=== PATIENT | male | born 1960 | race African-American/Black ===

== ENCOUNTER 2016-02-27 09:55 | Emergency (ER) ==
[2016-02-27 10:32] LABS: MANUAL DIFF NEEDED? NO
[2016-02-27 10:33] LABS: BASO% 0.6 % (0.0-0.8); EOS# 0.08 X1000 (0.0-0.7); EOS% 2.2 % (0.0-10.0); HEMATOCRIT 47.1 % (42.0-52.0); HEMOGLOBIN 16.2 g/dL (14.0-18.0); LYMPH# 1.04 X1000 (1.2-3.4); LYMPH% 28.8 % (20.5-51.1); MCH 29.4 PG (27-31); MCHC 34.4 g/dL (33-37); MCV 85.5 FL (81-99); MONO# 0.48 X1000 (0.11-0.59); MONO% 13.3 % (1.7-9.3); MPV 9.3 FL (7.4-10.4); NEUT% 55.1 % (42.2-75.2); PLT 407 X1000 (130-400); RBC 5.51 XMIL (4.7-6.1)
--- NOTE | 2016-02-27 10:47 | PROVIDER DOCUMENTATION ---
HPI-General Adult - General Chief Complaint: Return/Recheck Stated Complaint: B/P PROBLEMS Time Seen by Provider: 02/27/16 10:47 Source: patient, family Allergies/Adverse Reactions: Patient Allergies Allergy/AdvReac Type Severity Reaction Status Date / Time Sulfa (Sulfonamide Allergy RASH Verified 07/31/15 23:30 Antibiotics) - History of Present Illness -Gen Adult Nature of Presenting Problems: Reports Hypertension 195/114 this morning. Reports started yesterday took BP medications as instructed but started feeling bad today. Symptoms blurry vision, left temporal radiating right temporal headache and faster respirations. Also reports right leg sharp pain radiating intermittently Denies any injuries. Reports took BP while standing up. Severity: reports: moderate Onset/Duration: reports: 2 days ago Timing: reports: still present Context/Activities at Onset: reports: none Similar Symptoms Previously?: Yes Recently seen or treated by another doctor?: Yes Review of Systems - Adult - REVIEW OF SYSTEMS - ADULT Constitutional: denies: chills, fever, fatique Eyes: reports: blurred vision Ears, Nose, Mouth & Throat: denies: ear pain, sinus problem, throat pain Cardiovascular: reports: no symptoms reported Respiratory: denies: cough, shortness of breath, wheezing Gastrointestinal: reports: no symptoms reported Genitourinary: reports: no symptoms reported Musculoskeletal: reports: see HPI. denies: bone pain, back pain, joint pain, joint swelling Integumentary: reports: no symptoms reported Neurological: reports: headache/migraines. denies: dizziness/vertigo, loss of balance, numbness, paresthesia, syncope, tremors Psychiatric: reports: no symptoms reported Endocrine: reports: no symptoms reported Hematologic/Lymphatic: reports: no symptoms reported Allergic/Immunologic: reports: no symptoms reported All Other Systems: Reviewed and Negative Past History - Adult - PAST MEDICAL HISTORY-ADULT Review of Records: reports: Nursing Assessment Review, Social history reviewed & non-contributory. Major Childhood Illnesses: reports: denies history Cardiovascular: reports: HTN, hyperlipidemia Respiratory: reports: denies history Gastrointestinal: reports: GERD Obstetrical/Gynecological: reports: denies history Genitourinary: reports: denies history Musculoskeletal: reports: arthritis, other (chronic pain) Neurological: reports: denies history Psychiatric: reports: denies history Endocrine/Immune: reports: denies history Other Conditions: reports: denies history - PRIOR SURGERIES/PROCEDURES Surgical/Procedure History: reports: none, hernia repair, joint replacement ( pin right elbow) - PRIOR HOSPITALIZATIONS Prior Hospitalizations: reports: none - IMMUNIZATION STATUS Childhood Immunizations: UTD Flu Vaccine: UTD - FAMILY HISTORY Family History: reviewed, not pertinent, diabetes - SOCIAL HISTORY Smoking: denies Substance Use: none presently/history of abuse Alcohol Use Frequency: never Physical Exam-General - PHYSICAL EXAM-ADULT Initial Vital Signs Reviewed: Yes - CONSTITUTIONAL General Appearance: appears well, alert, no apparent distress - EYES Eyes: PERRL/EOMI - HEAD, EARS, NOSE, MOUTH & THROAT HENMT: moist mucous membranes, pharynx normal. negative: dental decay, hearing deficit, pharyngeal erythema, tonsillar exudate - RESPIRATORY Respiratory: chest non-tender, lungs clear, normal breath sounds, no pleuratic chest pain, no respiratory distress, no accessory muscle use - CARDIOVASCULAR Cardiovascular: normal peripheral pulses, regular rate, rhythm, no edema, no gallop, no JVD, no murmur - GASTROINTESTINAL (ABDOMEN) Abdominal Exam: normal bowel sounds, non tender, soft - MUSCULOSKELETAL Back Exam: normal inspection, no CVA tenderness, no vertebral tenderness Extremity: normal range of motion, non-tender, no pedal edema, normal capillary refill Peripheral Pulses: dorsalis-pedis (R): 2+, dorsalis-pedis (L): 2+ - SKIN Integumentary: normal color, normal turgor, warm/dry - NEUROLOGIC Neurologic: grossly normal, no motor/sensory deficits - PSYCHIATRIC Psych/Mental Status: normal mood/affect, normal thought content, normal thought process, oriented x 3 Progress - PLAN OF CARE/RESULTS Progress/Plan/Lab Results: Orders Category Date Time Status Cardiac Monitoring DIRECTED Care 02/27/16 10:19 Active Oxygen Therapy- ED Nursing DIRECTED Care 02/27/16 10:19 Active Saline Loc NOW Care 02/27/16 10:19 Active CHEST-2 VIEWS [RAD] Stat Exams 02/27/16 10:19 Taken CBC WITH ELECTRONIC DIFF [HEME] Stat Lab 02/27/16 10:25 Completed CK PROFILE [SP CHEM] Stat Lab 02/27/16 10:25 Received COMPREHENSIVE METABOLIC PANEL [CHEM] Stat Lab 02/27/16 10:25 Received MAGNESIUM [CHEM] Stat Lab 02/27/16 10:25 Received PRO B-NATRIURETIC PEPTIDE Stat Lab 02/27/16 10:[address]IME WITH INR PL [COAG] Stat Lab 02/27/16 10:[address] [COAG] Stat Lab 02/27/16 10:25 Received TROPONIN T Stat Lab 02/27/16 10:25 Received EKG [EKG] Stat Ther 02/27/16 10:19 Ordered Vital Signs - 24 hr 02/27/16 10:15 Temperature 98.2 F Pulse Rate 112 H Respiratory 20 Rate Blood Pressure 182/88 O2 Sat by Pulse 100 Oximetry Laboratory Tests 02/27/16 10:25 WBC 3.61 L RBC 5.51 Hgb 16.2 Hct 47.1 MCV 85.5 MCH 29.4 MCHC 34.4 RDW Std Deviation 13.0 Plt Count 407 H MPV 9.3 Immature Gran % (Auto) 0.0 Neut % (Auto) 55.1 Lymph % (Auto) 28.8 Kimball % (Auto) 13.3 H Eos % (Auto) 2.2 Baso % (Auto) 0.6 Immature Gran # (Auto) 0.00 Neut # (Auto) 1.99 Lymph # (Auto) 1.04 L Kimball # (Auto) 0.48 Eos # (Auto) 0.08 Baso # (Auto) 0.02 Laboratory Tests 02/27/16 02/27/16 02/27/16 10:25 10:25 10:25 WBC RBC Hgb Hct MCV MCH MCHC RDW Std Deviation Plt Count MPV Immature Gran % (Auto) Neut % (Auto) Lymph % (Auto) Kimball % (Auto) Eos % (Auto) Baso % (Auto) Immature Gran # (Auto) Neut # (Auto) Lymph # (Auto) Kimball # (Auto) Eos # (Auto) Baso # (Auto) PT INR APTT (Factor Assay) Sodium 136 Potassium 3.1 L Chloride 95 L Carbon Dioxide 28 Anion Gap 13 BUN 22 Creatinine 1.3 H Estimated GFR/1.73 m2 57 BUN/Creatinine Ratio 17 Glucose 152 H Calculated Osmolality 278 Calcium 9.7 Magnesium 2.0 Total Bilirubin 0.40 AST 13 ALT 12 Alkaline Phosphatase 98 Creatine Kinase 122 Troponin T < 0.010 [id number]-[id number] Pept 25 Total Protein 8.5 H Albumin 4.7 Globulin 4.0 Albumin/Globulin Ratio 1.0 01/04/17 01/04/17 10:25 10:25 WBC 3.61 L RBC 5.51 Hgb 16.2 Hct 47.1 MCV 85.5 MCH 29.4 MCHC 34.4 RDW Std Deviation 13.0 Plt Count 407 H MPV 9.3 Immature Gran % (Auto) 0.0 Neut % (Auto) 55.1 Lymph % (Auto) 28.8 Kimball % (Auto) 13.3 H Eos % (Auto) 2.2 Baso % (Auto) 0.6 Immature Gran # (Auto) 0.00 Neut # (Auto) 1.99 Lymph # (Auto) 1.04 L Kimball # (Auto) 0.48 Eos # (Auto) 0.08 Baso # (Auto) 0.02 PT 13.0 INR 0.95 APTT (Factor Assay) 31.0 Sodium Potassium Chloride Carbon Dioxide Anion Gap BUN Creatinine Estimated GFR/1.73 m2 BUN/Creatinine Ratio Glucose Calculated Osmolality Calcium Magnesium Total Bilirubin AST ALT Alkaline Phosphatase Creatine Kinase Troponin T Jhb-M-Qjsiezmqumb Pept Total Protein Albumin Globulin Albumin/Globulin Ratio - EKG 1 Time of EKG reading by physician:: 10:20 EKG Read and Signed by:: Jesse Montes De Oca Jr EKG Interpretation (*Must complete 3 of following elements*): Abnormal (cannot rule out anterior infarct age undetermined) Rate: 97 Rhythm: nsr Andreas: normal - XRAY 1 XRAY: Bilateral XRAY Study: Chest Impression: Normal XRAY Interpretation: nad Departure - Departure Time of Disposition Order: 12:00 DIAGNOSIS: Hypertension Qualifiers: Hypertension type: essential hypertension Qualified Code(s): I10 - Essential ( primary) hypertension Disposition: HOME 01 Certified Medical Emergency: Emergent Condition: Stable Additional Instructions: ED Follow Up Instructions: You have been treated by a care provider in the Emergency Department. These instructions are being provided to you so you can have an understanding of how to care for yourself upon discharge. Upon discharge from the Emergency Department, you are responsible for making arrangements for follow-up care by a physician of your choice. Take all prescribed medications as directed. Return to the Emergency Department immediately for any new or worsening symptoms. You may call the Physician Referral phone number at [phone] to obtain a list of Physicians who are taking new patients. Referrals: None,PCP [Primary Care Provider] - [facility] [NON-STAFF] - Attestation - Scribe Verification/Attestation Scribe:: Liban Thomas Acting as Scribe for:: Jesse Montes De Oca Jr Scribe documention review:: This chart was documented by a scribe and accurately reflects the service the provider performed and the decisions made by the provider.
[2016-02-27 10:54] LABS: ALBUMIN 4.7 g/dL (3.5-5.0); CALCIUM 9.7 mg/dL (8.8-10.2); POTASSIUM 3.1 mmol/L (3.5-5.1); TOTAL BILIRUBIN 0.4 mg/dL (0.20-1.00); TOTAL PROTEIN 8.5 g/dL (6.3-8.3)
--- NOTE | 2016-02-27 10:56 | EKG Report ---
Test Performed on : 02/27/2016 10:20:43 AM Test Reason : CHEST PAIN Blood Pressure : / mmHG Vent. Rate : 097 BPM Atrial Rate : 097 BPM P-R Int : 154 ms QRS Dur : 084 ms QT Int : 360 ms P-R-T Axes : 064 029 054 degrees QTc Int : 457 ms Normal sinus rhythm. Cannot rule out Anterior infarct , age undetermined Abnormal ECG When compared with ECG of 25-MAY-2007 08:06, Non-specific change in ST segment in Lateral leads Nonspecific T wave abnormality now evident in Lateral leads Unconfirmed Result
[2016-02-27 10:58] LABS: INR 0.95 (0.86-1.15)
--- NOTE | 2016-02-27 11:09 | Diag Imaging Result Document ---
PROCEDURE NAME: CHEST-2 VIEWS - 02/27/2016 CHEST TWO VIEWS: INDICATION: Dizziness. COMPARISON: 12/20/2010. FINDINGS: The heart size is within normal limits. No infiltrates or effusions are identified. There is no pneumothorax. There is stable mild wedging of a lower thoracic vertebral body. IMPRESSION: Stable chest. No acute abnormalities.
[2016-02-27] MEDS ORDERED: LOPRESSOR IV ONE (11:56)
[2016-02-27 12:54] VITALS: BP 121/92
== END 2016-02-27 13:03 | disposition home or self-care (01) ==
LOC: P.ED 09:55
DX: I10 Essential (primary) hypertension (principal); H53.8 Other visual disturbances; R51 Headache; M79.604 Pain in right leg; E78.5 Hyperlipidemia, unspecified; R06.89 Other abnormalities of breathing; K21.9 Gastro-esophageal reflux disease without esophagitis; M19.90 Unspecified osteoarthritis, unspecified site; G89.29 Other chronic pain; R94.31 Abnormal electrocardiogram [ECG] [EKG]; Z79.899 Other long term (current) drug therapy; Z83.3 Family history of diabetes mellitus
CPT/HCPCS: 36415; 71020; 80053; 82550; 83735; 83880; 84484; 85025; 85610; 85730; 93005; 96374

== ENCOUNTER 2016-03-02 16:42 | Emergency (ER) ==
--- NOTE | 2016-03-02 17:17 | PROVIDER DOCUMENTATION ---
HPI-General Adult - General Chief Complaint: B/P Problems Stated Complaint: B/P PROBLEMS Time Seen by Provider: 03/02/16 17:15 Source: patient Allergies/Adverse Reactions: Patient Allergies Allergy/AdvReac Type Severity Reaction Status Date / Time Sulfa (Sulfonamide Allergy RASH Verified 03/02/16 19:09 Antibiotics) - History of Present Illness -Gen Adult Nature of Presenting Problems: Pt is a 55 y/o AA male c chief complaint of elevated blood pressure refractory to his home htn meds x 5 days. Pt states he has been going to multiple ERs to get htn medications but has not had a consistent primary care physician or returns processor managing his htn. Pt denies any loss of vision, change in urination, headaches, slurred speech or other symptoms. On arrival, pt is in no distress. Review of Systems - Adult - REVIEW OF SYSTEMS - ADULT Constitutional: reports: see fely HERNANDEZ. denies: chills Eyes: reports: no symptoms reported. denies: blurred vision, double vision Ears, Nose, Mouth & Throat: reports: ear pain. denies: nose pain, throat pain Cardiovascular: reports: no symptoms reported. denies: chest pain, orthopnea Respiratory: reports: no symptoms reported. denies: cough, shortness of breath , wheezing Gastrointestinal: reports: no symptoms reported. denies: abdominal pain, nausea Genitourinary: reports: no symptoms reported. denies: dysuria, frequent UTI's Musculoskeletal: reports: no symptoms reported. denies: bone pain, joint pain, joint swelling Integumentary: reports: no symptoms reported. denies: itching, rash Neurological: reports: no symptoms reported. denies: numbness, paresthesia Psychiatric: reports: no symptoms reported. denies: anxiety, emotional problems Endocrine: reports: no symptoms reported. denies: cold intolerance, heat intolerance Hematologic/Lymphatic: reports: no symptoms reported. denies: blood clots, lymphedema Allergic/Immunologic: reports: no symptoms reported. denies: allergic reactions , hay fever All Other Systems: Reviewed and Negative Past History - Adult - PAST MEDICAL HISTORY-ADULT Review of Records: reports: Old Records Reviewed, Nursing Assessment Review, Medications Reviewed, Social history reviewed & non-contributory. Major Childhood Illnesses: reports: denies history Cardiovascular: reports: HTN, hyperlipidemia Respiratory: reports: denies history Gastrointestinal: reports: GERD Obstetrical/Gynecological: reports: denies history Genitourinary: reports: denies history Musculoskeletal: reports: arthritis, other (chronic pain) Neurological: reports: denies history Psychiatric: reports: denies history Endocrine/Immune: reports: denies history Other Conditions: reports: denies history - PRIOR SURGERIES/PROCEDURES Surgical/Procedure History: reports: none, hernia repair, joint replacement ( pin right elbow) - PRIOR HOSPITALIZATIONS Prior Hospitalizations: reports: none - IMMUNIZATION STATUS Childhood Immunizations: UTD Flu Vaccine: UTD - FAMILY HISTORY Family History: reviewed, not pertinent, diabetes - SOCIAL HISTORY Smoking: denies Substance Use: marijuana (quit January 2016) Alcohol Use Frequency: never Living Situation: family Physical Exam-General - PHYSICAL EXAM-ADULT Initial Vital Signs Reviewed: Yes - CONSTITUTIONAL General Appearance: appears well, alert, no apparent distress - EYES Eyes: PERRL/EOMI, pink conjunctivae - HEAD, EARS, NOSE, MOUTH & THROAT HENMT: normocephalic/atraumatic, moist mucous membranes, normal ENT inspection - NECK Neck: non-tender, full range of motion, normal inspection - RESPIRATORY Respiratory: chest non-tender, lungs clear, normal breath sounds - CARDIOVASCULAR Cardiovascular: normal peripheral pulses, regular rate, rhythm, no edema - GASTROINTESTINAL (ABDOMEN) Abdominal Exam: normal bowel sounds, non tender, soft - LYMPHATIC Lymphatic: no adenopathy - MUSCULOSKELETAL Back Exam: normal inspection, no CVA tenderness, no vertebral tenderness Extremity: normal range of motion, non-tender, normal gait - SKIN Integumentary: normal color, normal turgor, warm/dry - NEUROLOGIC Neurologic: interactive designer II-XII nml as tested, no motor/sensory deficits. negative: abnormal cerebellar tests, abnormal interactive designer II-XII, abnormal gait, aphasia, EOM palsy, facial droop, focal weakness, motor weakness, sensory deficit, negative romberg's sign, positive romberg's sign - PSYCHIATRIC Psych/Mental Status: normal mood/affect, normal thought content, normal thought process, oriented x 3 Progress - PLAN OF CARE/RESULTS Progress/Plan/Lab Results: Orders Category Date Time Status Cardiac Monitoring DIRECTED Care 03/02/16 17:17 Active Saline Loc NOW Care 03/02/16 17:17 Active CHEST-2 VIEWS [RAD] Stat Exams 03/02/16 17:17 Taken CBC WITH ELECTRONIC DIFF [HEME] Stat Lab 03/02/16 19:00 Completed CK PROFILE [SP CHEM] Stat Lab 03/02/16 19:00 Completed COMPREHENSIVE METABOLIC PANEL [CHEM] Stat Lab 03/02/16 19:00 Completed MAGNESIUM [CHEM] Stat Lab 03/02/16 19:00 Completed PRO B-NATRIURETIC PEPTIDE Stat Lab 03/02/16 19:00 Completed PROTIME WITH INR [COAG] Stat Lab 03/02/16 19:00 Completed PTT [COAG] Stat Lab 03/02/16 19:00 Completed TROPONIN T Stat Lab 03/02/16 19:00 Completed UDS [URINE DRUG SCREEN] Stat Lab 03/02/16 19:50 Completed Labetalol Med 03/02/16 17:25 Discontinued 20 mg IV NOW ONE Lido/Snider Alk/Al&mg Hydrox [G.i. Cocktail] Med 03/02/16 17:25 Discontinued 30 ml PO NOW ONE EKG [EKG] Stat Ther 03/02/16 17:17 Ordered Laboratory Tests 03/02/16 03/02/16 03/02/16 19:00 19:00 19:00 WBC 4.53 L RBC 5.03 Hgb 14.9 Hct 43.7 MCV 86.9 MCH 29.6 MCHC 34.1 RDW Std Deviation 12.8 Plt Count 420 H MPV 9.5 Immature Gran % (Auto) 0.0 Neut % (Auto) 55.6 Lymph % (Auto) 36.4 Gray % (Auto) 6.2 Eos % (Auto) 1.1 Baso % (Auto) 0.7 Immature Gran # (Auto) 0.00 Neut # (Auto) 2.52 Lymph # (Auto) 1.65 Gray # (Auto) 0.28 Eos # (Auto) 0.05 Baso # (Auto) 0.03 PT INR PTT (Actin FS) Sodium 141 Potassium 3.7 Chloride 96 L Carbon Dioxide 31 Anion Gap 14 BUN 18 Creatinine 1.2 Estimated GFR/1.73 m2 > 60 BUN/Creatinine Ratio 15 Glucose 109 H Calculated Osmolality 284 Calcium 9.3 Magnesium 2.2 Total Bilirubin 0.24 AST 15 ALT 19 Alkaline Phosphatase 84 Creatine Kinase 153 Troponin T Vgo-E-Msovbksvgiv Pept 22 Total Protein 7.8 Albumin 4.4 Globulin 3.4 Albumin/Globulin Ratio 1.3 Urine Opiates Screen Ur Oxycodone Screen Ur Methadone, Qual Ur Barbiturates Screen Ur Phencyclidine Scrn Ur Amphetamines Screen U Benzodiazepines Scrn Urine Cocaine Screen U Cannabinoids Screen 03/02/16 03/02/16 03/02/16 19:00 19:00 19:50 WBC RBC Hgb Hct MCV MCH MCHC RDW Std Deviation Plt Count MPV Immature Gran % (Auto) Neut % (Auto) Lymph % (Auto) Gray % (Auto) Eos % (Auto) Baso % (Auto) Immature Gran # (Auto) Neut # (Auto) Lymph # (Auto) Gray # (Auto) Eos # (Auto) Baso # (Auto) PT 10.6 INR 1.00 PTT (Actin FS) 26.3 Sodium Potassium Chloride Carbon Dioxide Anion Gap BUN Creatinine Estimated GFR/1.73 m2 BUN/Creatinine Ratio Glucose Calculated Osmolality Calcium Magnesium Total Bilirubin AST ALT Alkaline Phosphatase Creatine Kinase Troponin T < 0.010 Zpi-X-Ztpytgiqowv Pept Total Protein Albumin Globulin Albumin/Globulin Ratio Urine Opiates Screen NONE DETECTED Ur Oxycodone Screen NONE DETECTED Ur Methadone, Qual NONE DETECTED Ur Barbiturates Screen NONE DETECTED Ur Phencyclidine Scrn NONE DETECTED Ur Amphetamines Screen NONE DETECTED U Benzodiazepines Scrn NONE DETECTED Urine Cocaine Screen NONE DETECTED U Cannabinoids Screen PRESUMPTIVE POSITIVE A Vital Signs - 24 hr 03/02/16 03/02/16 16:49 18:52 Temperature 98.4 F Pulse Rate 98 H 85 Respiratory 18 18 Rate Blood Pressure 175/105 148/102 O2 Sat by Pulse 99 99 Oximetry Departure - Departure Time of Disposition Order: 20:40 DIAGNOSIS: Ear ache Hypertension Qualifiers: Hypertension type: essential hypertension Qualified Code(s): I10 - Essential ( primary) hypertension Disposition: HOME 01 Certified Medical Emergency: Emergent Condition: Stable Additional Instructions: ED Follow Up Instructions: You have been treated by a care provider in the Emergency Department. These instructions are being provided to you so you can have an understanding of how to care for yourself upon discharge. Upon discharge from the Emergency Department, you are responsible for making arrangements for follow-up care by a physician of your choice. Take all prescribed medications as directed. Return to the Emergency Department immediately for any new or worsening symptoms. You may call the Physician Referral phone number at [phone] to obtain a list of Physicians who are taking new patients. Prescriptions: Amoxicillin/Pot Clavulanate [Augmentin] 875 mg PO Q12HR #14 tablet Carvedilol [Coreg] 12.5 mg PO BID #60 tablet Ibuprofen [Motrin] 800 mg PO Q8H PRN PRN #20 tablet PRN Reason: inflammation Omeprazole [Prilosec] 20 mg PO DAILY@0700 #20 capsule Referrals: Weston Houston MD [STAFF PHYSICIAN] - Erick Duong MD [STAFF PHYSICIAN] - Instructions: Hypertension, [id number] Attestation - Physician/ Mid-level Attestation Patient care was provided by Mid-level provider (TODDLER NANNY/PA):: Yes Mid-level provider:: Dae Hernandez Mid-level documentation review:: The Mid-level provider documentation, treatment plan and medical decision making was reviewed by the physician who agrees with all treatment and medical decision making by the MLP.
[2016-03-02] MEDS ORDERED: LABETALOL IV ONE (17:25)
[2016-03-02] MEDS ORDERED: G.I. COCKTAIL PO ONE (17:25)
[2016-03-02 19:09] LABS: MANUAL DIFF NEEDED? NO
[2016-03-02 19:12] LABS: BASO% 0.7 % (0.0-0.8); EOS# 0.05 X1000 (0.0-0.7); EOS% 1.1 % (0.0-10.0); HEMATOCRIT 43.7 % (42.0-52.0); HEMOGLOBIN 14.9 g/dL (14.0-18.0); LYMPH# 1.65 X1000 (1.2-3.4); LYMPH% 36.4 % (20.5-51.1); MCH 29.6 PG (27-31); MCHC 34.1 g/dL (33-37); MCV 86.9 FL (81-99); MONO# 0.28 X1000 (0.11-0.59); MONO% 6.2 % (1.7-9.3); MPV 9.5 FL (7.4-10.4); NEUT% 55.6 % (42.2-75.2); PLT 420 X1000 (130-400); RBC 5.03 XMIL (4.7-6.1)
--- NOTE | 2016-03-02 19:25 | ED EKG INTERP ---
EKG Interpretation - EKG Time of EKG reading by physician:: 19:25 EKG Read and Signed by:: Ismael Saab EKG Interpretation (*Must complete 3 of following elements*): Normal Rate: 69 Rhythm: Normal sinus rhythm Attestation - Scribe Verification/Attestation Scribe:: Elias Nunez Acting as Scribe for:: Ismael Saab Scribe documention review:: This chart was documented by a scribe and accurately reflects the service the provider performed and the decisions made by the provider.
[2016-03-02 19:26] LABS: PROTIME 10.6 Seconds (9.2-11.7); PTT 26.3 Seconds (22.0-36.0)
[2016-03-02 19:34] LABS: AGAP 14; ALBUMIN 4.4 g/dL (3.5-5.0); ALKALINE PHOSPHATASE 84 U/L (32-122); BUN 18 mg/dL (8-22); CALCIUM 9.3 mg/dL (8.8-10.2); CHLORIDE 96 mmol/L (98-107); CK PROFILE 153 U/L (24-204); COSMO 284; GOT 15 U/L (10-34); GPT 19 U/L (10-44); MAGNESIUM 2.2 mg/dL (1.5-2.7); POTASSIUM 3.7 mmol/L (3.5-5.1); SODIUM 141 mmol/L (136-145); TCO2 31 mmol/L (25-35); TOTAL BILIRUBIN 0.24 mg/dL (0.20-1.00); TOTAL PROTEIN 7.8 g/dL (6.3-8.3)
[2016-03-02 20:36] LABS: UR AMPHETAMINES QUAL NONE DETECTED (NONE DETECT); UR BARBITUATES QUAL NONE DETECTED (NONE DETECT); UR BENZODIAZEPIN QUAL NONE DETECTED (NONE DETECT); UR CANNABINOIDS QUAL PRESUMPTIVE POSITIVE (NONE DETECT); UR COCAINE QUAL NONE DETECTED (NONE DETECT); UR METHADONE QUAL NONE DETECTED (NONE DETECT); UR OPIATES QUAL NONE DETECTED (NONE DETECT); UR OXYCODONE QUAL NONE DETECTED (NONE DETECT); UR PCP QUAL NONE DETECTED (NONE DETECT)
[2016-03-02 21:11] VITALS: BP 126/80
--- NOTE | 2016-03-03 05:37 | EKG Report ---
Test Performed on : 03/02/2016 7:18:29 PM Test Reason : Chest Pain Blood Pressure : / mmHG Vent. Rate : 069 BPM Atrial Rate : 069 BPM P-R Int : 174 ms QRS Dur : 084 ms QT Int : 396 ms P-R-T Axes : 034 029 017 degrees QTc Int : 424 ms Normal sinus rhythm. Normal ECG No previous ECGs available Unconfirmed Result
--- NOTE | 2016-03-03 07:51 | Diag Imaging Result Document ---
PROCEDURE NAME: CHEST-2 VIEWS - 03/02/2016 FRONTAL AND LATERAL CHEST, TWO VIEWS: COMPARISON: Compared to 02/27/2016. FINDINGS: The lungs are well expanded. The heart is not enlarged. The vessels are not distended. No pneumonia. No pleural effusions. No free air beneath the diaphragm. IMPRESSION: No acute abnormality.
== END 2016-03-02 21:11 | disposition home or self-care (01) ==
LOC: ED 16:42
DX: I10 Essential (primary) hypertension (principal); H92.09 Otalgia, unspecified ear; R53.83 Other fatigue; E78.5 Hyperlipidemia, unspecified; K21.9 Gastro-esophageal reflux disease without esophagitis; M19.90 Unspecified osteoarthritis, unspecified site; G89.29 Other chronic pain; Z83.3 Family history of diabetes mellitus; Z79.899 Other long term (current) drug therapy
CPT/HCPCS: 51798; 71020; 80053; 82550; 83735; 83880; 84484; 85025; 85610; 85730; 93005; 96374; G0480

== ENCOUNTER 2016-05-04 12:24 | Emergency (ER) ==
[2016-05-04 12:28] VITALS: BP 156/81
== END 2016-05-04 15:10 | disposition left against medical advice (07) ==
LOC: P.ED 12:24
DX: R51 Headache (principal); J34.89 Other specified disorders of nose and nasal sinuses; H92.03 Otalgia, bilateral

== ENCOUNTER 2016-05-06 00:59 | Emergency (ER) ==
[2016-05-06] MEDS ORDERED: PREDNISONE PO ONE (01:29)
[2016-05-06] MEDS ORDERED: NORVASC PO ONE (01:29)
--- NOTE | 2016-05-06 01:31 | PROVIDER DOCUMENTATION ---
HPI-EENT General - General Source: patient - History of Present Illness-EENT General EENT Location: reports: ear (R), ear (L) Quality of Pain: reports: aching Severity: reports: mild Onset/Duration: reports: other (1 month) Timing: reports: still present Associated Symptoms: reports: nasal congestion/drainage Locality of Occurance: Home Similar Symptoms Previously?: No Recently seen or treated by another doctor?: No <Marce Benoit - Last Filed: 05/06/16 01:28> <Bello Garcia - Last Filed: 05/06/16 02:07> - General Chief Complaint: Cold Symptoms Stated Complaint: BOTH EARACHE, COLD SX Time Seen by Provider: 05/06/16 01:13 Allergies/Adverse Reactions: Patient Allergies Allergy/AdvReac Type Severity Reaction Status Date / Time Sulfa (Sulfonamide Allergy ANAPHYLAXIS Verified 05/06/16 01:09 Antibiotics) Home Medications: Home Medication List Medication Instructions Recorded Confirmed Last Taken Type Carvedilol [Coreg] 12.5 mg PO BID #60 tablet 03/02/16 05/06/16 03/08/16 Rx Ibuprofen [Motrin] 800 mg PO Q8H PRN PRN #20 tablet 03/02/16 05/06/16 Unknown Rx Omeprazole [Prilosec] 20 mg PO DAILY@0700 #20 capsule 03/02/16 05/06/16 Rx Clonidine [Catapres] 0.1 mg PO DAILY PRN #15 tablet 03/07/16 05/06/16 03/08/16 21:30 Rx Hydrochlorothiazide 25 mg PO DAILY #30 tablet 03/09/16 05/06/16 Unknown Rx Amlodipine Besylate [Norvasc] 10 mg PO HS #30 tablet 05/06/16 Unknown Rx Amoxicillin 875 mg PO Q8HR #20 tablet 05/06/16 Unknown Rx Famotidine [Pepcid] 20 mg PO BID #30 tablet 05/06/16 Unknown Rx - History of Present Illness-EENT General Nature of Presenting Problem: 55 year old M presents to the ED with a cc of bilateral ear pain, headache, and congestion x1 month. PT also c/o high blood pressure for the same amount of time. PT states that he is taking a medication but it is not helping. (Marce Benoit) Review of Systems - Adult - REVIEW OF SYSTEMS - ADULT Constitutional: denies: chills, fever Eyes: reports: no symptoms reported Ears, Nose, Mouth & Throat: reports: ear pain, sinus problem. denies: throat pain Cardiovascular: denies: chest pain, palpitations Respiratory: denies: cough, shortness of breath Gastrointestinal: denies: nausea, vomiting Genitourinary: reports: no symptoms reported Musculoskeletal: reports: no symptoms reported Integumentary: reports: no symptoms reported Neurological: reports: headache/migraines. denies: dizziness/vertigo Psychiatric: reports: no symptoms reported Endocrine: reports: no symptoms reported Hematologic/Lymphatic: reports: no symptoms reported Allergic/Immunologic: reports: no symptoms reported All Other Systems: Reviewed and Negative <Marce Benoit - Last Filed: 05/06/16 01:28> Past History - Adult - PAST MEDICAL HISTORY-ADULT Review of Records: reports: Nursing Assessment Review, Medications Reviewed Cardiovascular: reports: HTN (12 years), hyperlipidemia Gastrointestinal: reports: GERD Musculoskeletal: reports: arthritis, other (chronic pain) Endocrine/Immune: reports: Diabetes - PRIOR SURGERIES/PROCEDURES Surgical/Procedure History: reports: hernia repair, joint replacement (pin right elbow) - IMMUNIZATION STATUS Childhood Immunizations: See Nurse Assessment Flu Vaccine: See Nurse Assessment - FAMILY HISTORY Family History: diabetes - SOCIAL HISTORY Smoking: non-smoker Substance Use: none/never Alcohol Use Frequency: never <Marce Benoit - Last Filed: 05/06/16 01:28> Physical Exam- EENT - Physical Exam EENT Initial Vital Signs Reviewed: Yes General Appearance: appears well, alert, no apparent distress Ear Exam: bilateral ear: other (fluid behind bilateral TMs) Respiratory: chest non-tender, lungs clear, normal breath sounds Cardiovascular: normal peripheral pulses, regular rate, rhythm, no edema Integumentary: normal color, normal turgor, warm/dry Psych/Mental Status: normal mood/affect, normal thought content, normal thought process, oriented x 3 <Marce Benoit - Last Filed: 05/06/16 01:28> Progress <Marce Benoit - Last Filed: 05/06/16 01:28> <Bello Garcia - Last Filed: 05/06/16 02:07> - PLAN OF CARE/RESULTS Progress/Plan/Lab Results: plan of care: labs, medications Orders Category Date Time Status Finger Stick Blood Sugar (ED) DIRECTED Care 05/06/16 01:29 Active INFLUENZA SCREEN A/B Stat Lab 05/06/16 01:14 Uncollected Amlodipine [Norvasc] Med 05/06/16 01:29 Discontinued 10 mg PO NOW ONE Prednisone Med 05/06/16 01:29 Discontinued 40 mg PO NOW ONE Vital Signs - 24 hr 05/06/16 01:01 Temperature 98.0 F Pulse Rate 78 Respiratory 18 Rate Blood Pressure 163/95 O2 Sat by Pulse 100 Oximetry Pt given results and will be d/c home w/ rx to follow up with PCP. Pt verbally understood instructions. PT remained clinically stable throughout the course of the ED stay and will return if symptoms worsen. (Marce Benoit) Departure <Marce Benoit - Last Filed: 05/06/16 01:28> - Departure Time of Disposition Order: 02:07 Certified Medical Emergency: Emergent <Bello Garcia - Last Filed: 05/06/16 02:07> - Departure DIAGNOSIS: URI (upper respiratory infection), Hypertension Disposition: HOME 01 Condition: Stable Prescriptions: Amoxicillin 875 mg PO Q8HR #20 tablet Amlodipine Besylate [Norvasc] 10 mg PO HS #30 tablet Famotidine [Pepcid] 20 mg PO BID #30 tablet Referrals: Jimy Andrews MD [Primary Care Provider] - Attestation - Scribe Verification/Attestation Scribe:: Marce Benoit Acting as Scribe for:: Bello Garcia Scribe documention review:: This chart was documented by a scribe and accurately reflects the service the provider performed and the decisions made by the provider. <Marce Benoit - Last Filed: 05/06/16 01:28> Physician Attestation - Physician Attestation I, the provider, attest to the following statement:: Bello Garcia Physician documentation Attestation:: This documentation recorded by the scribe accurately reflects the service I personally performed and the decisions made by me. <Marce Benoit - Last Filed: 05/06/16 01:28>
[2016-05-06 02:13] VITALS: BP 134/91
== END 2016-05-06 02:14 | disposition home or self-care (01) ==
LOC: ED 00:59
DX: J06.9 Acute upper respiratory infection, unspecified (principal); I10 Essential (primary) hypertension; H92.03 Otalgia, bilateral; R51 Headache; R09.81 Nasal congestion; E78.5 Hyperlipidemia, unspecified; K21.9 Gastro-esophageal reflux disease without esophagitis; M19.90 Unspecified osteoarthritis, unspecified site; G89.29 Other chronic pain; E11.9 Type 2 diabetes mellitus without complications; Z79.899 Other long term (current) drug therapy
CPT/HCPCS: 82948; 87804; J7512